=== PATIENT | female | born 1970 | race Caucasian/White ===

== ENCOUNTER 2017-06-15 16:20 | Emergency (ER) | payer MEDICAID ==
[~2017-06-15] VITALS: Ht 162.6 cm; Wt 76.8 kg
[2017-06-15] MEDS ORDERED: SODIUM CHLORIDE 0.9% 1,000ML IVBOLUS ONE (16:30)
[2017-06-15] MEDS ORDERED: SODIUM CHLORIDE FLUSH 10ML SYR IVF ONE (16:30)
[2017-06-15] MEDS ORDERED: ONDANSETRON 2MG/ML, 2ML IVPush ONE (16:30)
[2017-06-15 16:42] LABS: HEMATOCRIT 42.3 % (34.6-47.8); HEMOGLOBIN 14.1 g/dL (11.7-16.4); WHITE BLOOD COUNT 8.7 x10^3/uL (3.4-10)
[2017-06-15 16:55] LABS: ASPARTATE AMINO TRANSFERASE 19 U/L (15-37); BLOOD UREA NITROGEN 14 mg/dL (7-18)
[2017-06-15 18:00] VITALS: BP 112/72
== END 2017-06-15 18:02 | disposition home or self-care (01) ==
LOC: ED 17:33
DX: N30.00 Acute cystitis without hematuria (principal)
CPT/HCPCS: 36415; 80053; 81001; 85025; 87077; 87086; 99284; J7030; 87186

== ENCOUNTER 2018-09-09 11:46 | Emergency (ER) | payer MEDICAID ==
[~2018-09-09] VITALS: Ht 162.6 cm; Wt 74.0 kg
[2018-09-09 12:00] VITALS: BP 122/80
[2018-09-09] MEDS ORDERED: DIPHENHYDRAMINE 50 MG CAPSULE ONE (12:28)
[2018-09-09] MEDS ORDERED: FAMOTIDINE 20 MG TABLET ONE (12:29)
[2018-09-09] MEDS ORDERED: FAMOTIDINE 20 MG TABLET PO ONE (12:30)
[2018-09-09] MEDS ORDERED: DIPHENHYDRAMINE 25 MG CAPSULE PO ONE (12:30)
== END 2018-09-09 13:38 | disposition home or self-care (01) ==
LOC: ED 13:10
DX: L20.9 Atopic dermatitis, unspecified (principal)
CPT/HCPCS: 99284; J7512; Q0163

== ENCOUNTER 2018-12-02 23:33 | Inpatient (IN) | payer MEDICAID, OTHER ==
[~2018-12-02] VITALS: Ht 162.6 cm; Wt 65.6 kg
[2018-12-02 23:51] LABS: BASOPHILS # (AUTO) 0.07 x10^3/uL (0-0.1); BASOPHILS % (AUTO) 1 % (0-1); EOSINOPHILS # (AUTO) 0.11 x10^3/uL (0-0.4); EOSINOPHILS % (AUTO) 1 % (1-7); LYMPHOCYTES # (AUTO) 2.59 x10^3/uL (1-3.4); LYMPHOCYTES % (AUTO) 27 % (22-44); MD NO; MEAN CORPUSCULAR HEMOGLOBIN 29.4 pg (27.0-34.8); MEAN CORPUSCULAR HGB CONC 33.6 g/dL (32.4-35.8); MEAN CORPUSCULAR VOLUME 87.4 fL (80-100); MEAN PLATELET VOLUME 9.4 fL (7.4-10.4); MONOCYTES # (AUTO) 0.97 x10^3/uL (0.2-0.8); MONOCYTES % (AUTO) 10 % (2-9); NEUTROPHILS % (AUTO) 62 % (42-75); PLATELET COUNT 323 x10^3/uL (130-400); RED BLOOD COUNT 4.58 x10^6/uL (3.82-5.3); RED CELL DISTRIBUTION WIDTH 12.1 % (9.6-15.2)
--- NOTE | 2018-12-02 23:51 | NUR ---
PT EXPERIENCING LLQ ABD PAIN. PAIN 9/10 AND DESCRIBED SHARP. PT EXPERIENCING NVD PER TRIAGE NOTE
--- NOTE | 2018-12-02 23:52 | NUR ---
[facility]S GIVEN FENTANYL 200MCG WITH ZOFRAN IV
[2018-12-02] MEDS ORDERED: ONDANSETRON 2MG/ML, 2ML ONE (23:57)
[2018-12-02] MEDS ORDERED: MORPHINE SULFATE 4 MG/ML, 1ML ONE (23:58)
[2018-12-02] MEDS: MORPHINE SULFATE 4 MG/ML, 1ML IVPush PRN (23:59)
[2018-12-03] MEDS ORDERED: ONDANSETRON 2MG/ML, 2ML IVPush ONE
[2018-12-03 00:03] LABS: ALANINE AMINOTRANSFERASE 24 U/L (12-78); ALBUMIN 3.7 g/dL (3.4-5.0); ANION GAP 10 mmol/L (5-15); CALCIUM 8.6 mg/dL (8.5-10.1); CHLORIDE 108 mmol/L (98-107); CREATININE 0.75 mg/dL (0.55-1.02)
[2018-12-03 00:07] LABS: ALKALINE PHOSPHATASE 88 U/L (45-117); BILIRUBIN,TOTAL 0.3 mg/dL (0.2-1.0); TOTAL PROTEIN 6.8 g/dL (6.4-8.2)
[2018-12-03] MEDS ORDERED: MORPHINE SULFATE 4 MG/ML, 1ML ONE (00:08)
[2018-12-03] MEDS: MORPHINE SULFATE 4 MG/ML, 1ML IVPush PRN (00:10)
[2018-12-03] MEDS ORDERED: KETOROLAC 30 MG/1 ML ONE (00:24)
--- NOTE | 2018-12-03 00:28 | NUR ---
TORADOL GIVEN AFTER 2X MORPHINE IV PAIN MEDS PT IS IN CT NOW
[2018-12-03] MEDS ORDERED: KETOROLAC 30 MG/1 ML IVPush ONE (00:30)
[2018-12-03] MEDS ORDERED: OMNIPAQUE 350 MG/ML, 100ML BOTTLE ONE (00:30)
[2018-12-03 00:53] LABS: MICROSCOPIC NOT IND
[2018-12-03 00:57] LABS: CULTURE INDICATED? NO
[2018-12-03] MEDS ORDERED: HYDROmorphone 1 MG/ML, 1ML ONE (01:14)
[2018-12-03] MEDS ORDERED: SODIUM CHLORIDE 0.9% 1,000 ML IV ONE (01:24)
[2018-12-03] MEDS ORDERED: HYDROmorphone 2 MG/ML, 1ML IVPush PRN (01:30)
[2018-12-03] MEDS ORDERED: ONDANSETRON 2MG/ML, 2ML IVPush PRN (01:30)
[2018-12-03] MEDS ORDERED: HYDROmorphone 1 MG/ML, 1ML IVPush PRN (01:30)
--- NOTE | 2018-12-03 01:43 | NUR ---
ng was inserted after given iv dilaudid per pt's pain pt tolerated well during the ng insertion about 200mls of semifluids out as soon as ng insertion
--- NOTE | 2018-12-03 01:50 | NUR ---
given report after ng insertion
[2018-12-03] MEDS ORDERED: POLYETHYLENE GLYCOL 17 GM PACKET PO PRN (02:00)
[2018-12-03] MEDS ORDERED: PROMETHAZINE 25 MG/ML, 1ML IM PRN (02:00)
[2018-12-03] MEDS ORDERED: ONDANSETRON ODT 4 MG PO PRN (02:00)
[2018-12-03] MEDS ORDERED: DOCUSATE 100 MG CAPSULE PO PRN (02:00)
[2018-12-03] MEDS ORDERED: D5%-0.9% NACL 1,000 ML IV SCH (02:00)
[2018-12-03] MEDS ORDERED: OXYcodone IR 5MG TABLET PO PRN (02:00)
[2018-12-03] MEDS ORDERED: hydrALAzine 20 MG/ML, 1ML IVPush PRN (02:00)
[2018-12-03] MEDS ORDERED: BISACODYL 10 MG SUPP PR PRN (02:00)
[2018-12-03 02:15] VITALS: BP 131/68
[2018-12-03 02:30] LABS: FREE T4 (FREE THYROXINE) 1.18 ng/dL (0.76-1.46); THYROID STIMULATING HORMONE 1.71 mIU/L (0.358-3.740)
[2018-12-03] MEDS ORDERED: D5%-0.9% NACL+KCL 20MEQ 1,000 ML IV SCH (02:30)
[2018-12-03 02:43] LABS: HEMOGLOBIN A1C 5.4 % (4.2-6.3)
[2018-12-03] MEDS: morphine SULFATE 10 MG/ML, 1ML IVPush PRN ×7 (03:42→22:41)
[2018-12-03 07:29] VITALS: BP 112/76
[2018-12-03] MEDS ORDERED: MAGNESIUM SULFATE PMX 4GM/100M 100 ML IV ONE (07:30)
[2018-12-03] MEDS ORDERED: BISACODYL 10 MG SUPP PR SCH (09:00)
[2018-12-03] MEDS: NS + 40MEQ KCL 1,000 ML IV SCH ×2 (09:27→21:55)
[2018-12-03 12:57] VITALS: BP 108/75
[2018-12-03 19:56] VITALS: BP 107/75
[2018-12-04] VITALS (7 sets, daily range): BP systolic 97–118; BP diastolic 62–81
[2018-12-04] MEDS: ACETAMINOPHEN 650 MG SUPP PR PRN (01:16)
[2018-12-04] MEDS: morphine SULFATE 10 MG/ML, 1ML IVPush PRN ×7 (01:56→23:52)
[2018-12-04 05:25] LABS: INTERNATIONAL NORMALIZED RATIO 1.08 (0.93-1.1); PROTHROMBIN TIME 11.4 Seconds (9.6-11.5)
[2018-12-04 05:30] LABS: CHLORIDE 110 mmol/L (98-107)
[2018-12-04 05:33] LABS: BASOPHILS # (AUTO) 0.04 x10^3/uL (0-0.1); BASOPHILS % (AUTO) 1 % (0-1); EOSINOPHILS # (AUTO) 0.14 x10^3/uL (0-0.4); EOSINOPHILS % (AUTO) 2 % (1-7); LYMPHOCYTES # (AUTO) 1.13 x10^3/uL (1-3.4); LYMPHOCYTES % (AUTO) 17 % (22-44); MD NO; MEAN CORPUSCULAR HEMOGLOBIN 29.8 pg (27.0-34.8); MEAN CORPUSCULAR VOLUME 87.7 fL (80-100); MEAN PLATELET VOLUME 9.5 fL (7.4-10.4); MONOCYTES # (AUTO) 0.69 x10^3/uL (0.2-0.8); MONOCYTES % (AUTO) 10 % (2-9); NEUTROPHILS # (AUTO) 4.84 x10^3/uL (1.8-6.8); NEUTROPHILS % (AUTO) 71 % (42-75); PLATELET COUNT 271 x10^3/uL (130-400); RED BLOOD COUNT 4.03 x10^6/uL (3.82-5.3); RED CELL DISTRIBUTION WIDTH 12.3 % (9.6-15.2)
[2018-12-04 05:40] LABS: ALANINE AMINOTRANSFERASE 30 U/L (12-78); ALBUMIN 3.1 g/dL (3.4-5.0); ALKALINE PHOSPHATASE 99 U/L (45-117); ANION GAP 5 mmol/L (5-15); BILIRUBIN,TOTAL 0.6 mg/dL (0.2-1.0); CHOL/HDL RATIO 2.6; CHOLESTEROL, TOTAL 108 mg/dL (140-239); CREATININE 0.44 mg/dL (0.55-1.02); HDL CHOL % 39 % (28-40); HDL CHOLESTEROL (DIRECT) 42 mg/dL (40-60); LDL CHOLESTEROL,CALCULATED 45 mg/dL (54-169); LDL/HDL RATIO 1.1 (0.5-3.0); TOTAL PROTEIN 5.9 g/dL (6.4-8.2); TRIGLYCERIDES 104 mg/dL (50-200); VLDL CHOLESTEROL 21 mg/dL (0-25)
[2018-12-04] MEDS: ENOXAPARIN 40 MG/0.4 ML SQ SCH (07:30)
[2018-12-04] MEDS ORDERED: BISACODYL 10 MG SUPP PR PRN (07:30)
[2018-12-04] MEDS ORDERED: NS + 40MEQ KCL 1,000 ML IV SCH (07:30)
[2018-12-04] MEDS ORDERED: FENTANYL PF 250 MCG/5ML ONE (14:43)
[2018-12-04] MEDS ORDERED: MIDAZOLAM 1 MG/ML, 2ML ONE (14:43)
[2018-12-04] MEDS ORDERED: DEXAMETHASONE 4 MG/ML, 1ML ONE ×2 (14:52)
[2018-12-04] MEDS ORDERED: SUCCINYLCHOLINE 20 MG/ML, 10ML ONE (14:52)
[2018-12-04] MEDS ORDERED: PROPOFOL 10 MG/ML, 20ML ONE (14:52)
[2018-12-04] MEDS ORDERED: ONDANSETRON 2MG/ML, 2ML ONE (14:52)
[2018-12-04] MEDS ORDERED: hydrALAzine 20 MG/ML, 1ML IV PRN (15:30)
[2018-12-04] MEDS ORDERED: LABETALOL 5MG/ML, 20ML IV PRN (15:30)
[2018-12-04] MEDS ORDERED: ONDANSETRON ODT 8 MG PO PRN (15:30)
[2018-12-04] MEDS ORDERED: PROMETHAZINE 25 MG SUPP PR PRN (15:30)
[2018-12-04] MEDS ORDERED: PROMETHAZINE 25 MG/ML, 1ML IV PRN (15:30)
[2018-12-04] MEDS ORDERED: ONDANSETRON 2MG/ML, 2ML IV PRN (15:30)
[2018-12-04] MEDS ORDERED: MORPHINE SULFATE 4 MG/ML, 1ML IVPush PRN (15:30)
[2018-12-04] MEDS ORDERED: MEPERIDINE/PF 25MG/0.5ML IVPush PRN (15:30)
[2018-12-04] MEDS ORDERED: PROMETHAZINE 25 MG/ML, 1ML IM PRN ×2 (15:30)
[2018-12-04] MEDS ORDERED: HYDROmorphone 2 MG/ML, 1ML IVPush PRN (15:30)
[2018-12-04] MEDS ORDERED: PROMETHAZINE 12.5 MG SUPP PR PRN (15:30)
[2018-12-04] MEDS ORDERED: FENTANYL PF 100 MCG/2ML ONE (15:51)
[2018-12-04] MEDS: FENTANYL PF 100 MCG/2ML IV PRN ×2 (15:53→16:02)
[2018-12-05 01:47] VITALS: BP 97/64
[2018-12-05 02:19] VITALS: BP 97/64
[2018-12-05] MEDS: ACETAMINOPHEN 650 MG SUPP PR PRN (02:24)
[2018-12-05] MEDS: morphine SULFATE 10 MG/ML, 1ML IVPush PRN ×6 (03:45→21:32)
[2018-12-05 04:56] LABS: ANION GAP 10 mmol/L (5-15); CALCIUM 8.1 mg/dL (8.5-10.1); CHLORIDE 111 mmol/L (98-107); CREATININE 0.48 mg/dL (0.55-1.02)
[2018-12-05 07:19] VITALS: BP 93/60
[2018-12-05] MEDS: ENOXAPARIN 40 MG/0.4 ML SQ SCH ×2 (07:30→19:27)
[2018-12-05] MEDS: SODIUM CHLORIDE 0.9% 1,000 ML IV SCH ×2 (07:37→21:32)
[2018-12-05 11:00] VITALS: BP 97/59
[2018-12-05 12:05] VITALS: BP 94/61
[2018-12-05 18:46] LABS: ANA SCREEN NEGATIVE (Negative)
[2018-12-05 20:27] VITALS: BP 90/60
[2018-12-06] MEDS: morphine SULFATE 10 MG/ML, 1ML IVPush PRN ×4 (00:29→12:18)
[2018-12-06 02:39] VITALS: BP 132/77
[2018-12-06 05:03] LABS: ANION GAP 6 mmol/L (5-15); CALCIUM 8.2 mg/dL (8.5-10.1); CHLORIDE 110 mmol/L (98-107); CREATININE 0.46 mg/dL (0.55-1.02)
[2018-12-06] MEDS ORDERED: LORazepam 2 MG/ML, 1ML IVPush ONE (07:00)
[2018-12-06 07:29] VITALS: BP 120/80
[2018-12-06] MEDS ORDERED: FENTANYL PF 250 MCG/5ML ONE (11:57)
[2018-12-06] MEDS ORDERED: MIDAZOLAM 1 MG/ML, 2ML ONE (11:57)
[2018-12-06] MEDS: SODIUM CHLORIDE 0.9% 1,000 ML IV SCH (12:18)
[2018-12-06] MEDS ORDERED: LIDOCAINE/MPF 2%-EPI 1:200K, 20 ML ONE (14:22)
[2018-12-06] MEDS ORDERED: SUGAMMADEX 200 MG/2 ML IVPush ONE (16:01)
[2018-12-06] MEDS ORDERED: HYDROmorphone 5 MG, BUPIVACAINE/PF 0.5%, 30ML 62.5 ML in SODIUM CHLORIDE 0.9% 182.5 ML EPIDCONT SCH (17:00)
[2018-12-06] MEDS ORDERED: FENTANYL PF 100 MCG/2ML ONE (17:23)
[2018-12-06] MEDS ORDERED: FENTANYL PF 100 MCG/2ML IV PRN (18:00)
[2018-12-06] MEDS ORDERED: NALOXONE 0.4 MG/ML, 1ML IV PRN (18:00)
[2018-12-06] MEDS ORDERED: DO NOT GIVE XX SCH (18:00)
[2018-12-06] MEDS ORDERED: EPHEDRINE 50 MG/ML, 1ML IVPush PRN (18:00)
[2018-12-06] MEDS ORDERED: DIAZEPAM 5 MG/ML, 2ML IVPush PRN (19:00)
[2018-12-06 19:52] VITALS: BP 111/76
[2018-12-06] MEDS ORDERED: NALBUPHINE 10 MG/ML, 1ML IV PRN (20:30)
[2018-12-06] MEDS ORDERED: LACTATED RINGERS 500 ML IVBOLUS PRN (21:00)
[2018-12-06] MEDS: POTASSIUM CHLORIDE 20 MEQ in LACTATED RINGERS 1,000 ML IV SCH (22:19)
[2018-12-07 01:25] VITALS: BP 122/71
[2018-12-07] MEDS: LORazepam 2 MG/ML, 1ML IV PRN (06:13)
[2018-12-07] MEDS: POTASSIUM CHLORIDE 20 MEQ in LACTATED RINGERS 1,000 ML IV SCH (06:45)
[2018-12-07] MEDS ORDERED: GLUCAGON 1 MG IM PRN (07:30)
[2018-12-07] MEDS ORDERED: DEXTROSE 4 GM TAB.CHEW PO PRN (07:30)
[2018-12-07] MEDS ORDERED: DEXTROSE 50%, 50ML SYRINGE IVPush PRN (07:30)
[2018-12-07 07:47] LABS: BASOPHILS # (AUTO) 0.02 x10^3/uL (0-0.1); BASOPHILS % (AUTO) 0 % (0-1); EOSINOPHILS # (AUTO) 0.08 x10^3/uL (0-0.4); EOSINOPHILS % (AUTO) 1 % (1-7); HEMOGRAM NOTE RECHECKED; LYMPHOCYTES # (AUTO) 0.88 x10^3/uL (1-3.4); LYMPHOCYTES % (AUTO) 8 % (22-44); MD NO; MEAN CORPUSCULAR HEMOGLOBIN 29.3 pg (27.0-34.8); MEAN CORPUSCULAR HGB CONC 33.7 g/dL (32.4-35.8); MEAN PLATELET VOLUME 8.9 fL (7.4-10.4); MONOCYTES # (AUTO) 1.22 x10^3/uL (0.2-0.8); MONOCYTES % (AUTO) 12 % (2-9); NEUTROPHILS # (AUTO) 8.41 x10^3/uL (1.8-6.8); NEUTROPHILS % (AUTO) 79 % (42-75); PLATELET COUNT 291 x10^3/uL (130-400); RED BLOOD COUNT 4.31 x10^6/uL (3.82-5.3)
[2018-12-07 07:49] LABS: ALANINE AMINOTRANSFERASE 24 U/L (12-78); ALBUMIN 2.6 g/dL (3.4-5.0); ANION GAP 10 mmol/L (5-15); CALCIUM 7.8 mg/dL (8.5-10.1); CHLORIDE 107 mmol/L (98-107); CREATININE 0.51 mg/dL (0.55-1.02)
[2018-12-07 07:51] LABS: ALKALINE PHOSPHATASE 80 U/L (45-117); BILIRUBIN,TOTAL 0.5 mg/dL (0.2-1.0); TOTAL PROTEIN 5.6 g/dL (6.4-8.2)
[2018-12-07 09:04] VITALS: BP 113/80
[2018-12-07] MEDS: SODIUM CHLORIDE FLUSH 10ML SYR IVF SCH ×2 (09:22→20:25)
[2018-12-07] MEDS: DEXTROSE 5% 1,000 ML IV SCH ×2 (09:22→17:30)
[2018-12-07] MEDS: FENTANYL PF 100 MCG/2ML EPIDPUSH PRN ×5 (10:37→22:23)
[2018-12-07 12:50] VITALS: BP 112/70
[2018-12-07] MEDS ORDERED: D5%-0.45NACL+KCL 20MEQ 1,000 ML IV SCH (14:30)
[2018-12-07] MEDS ORDERED: CEFOTETAN 2 GM ONE (14:57)
[2018-12-07] MEDS ORDERED: EPHEDRINE 50 MG/ML, 1ML ONE (14:57)
[2018-12-07] MEDS ORDERED: ROCURONIUM 10 MG/ML,10ML ONE (14:57)
[2018-12-07] MEDS ORDERED: morphine SULFATE/PF 1 MG/ML, 10ML EPIDPUSH PRN ×2 (15:00→16:40)
[2018-12-07] MEDS: HYDROmorphone 5 MG, BUPIVACAINE/PF 0.5%, 30ML 62.5 ML in SODIUM CHLORIDE 0.9% 182.5 ML EPIDCONT SCH (18:13)
[2018-12-07 20:00] VITALS: BP 112/70
[2018-12-08] VITALS (7 sets, daily range): BP systolic 72–101; BP diastolic 36–70
[2018-12-08] MEDS: FENTANYL PF 100 MCG/2ML EPIDPUSH PRN ×4 (00:52→12:13)
[2018-12-08] MEDS: OXYcodone/APAP 5/325MG TABLET PO PRN ×4 (08:26→23:56)
[2018-12-08] MEDS: SODIUM CHLORIDE FLUSH 3ML SYRINGE IVF SCH ×2 (08:26→21:00)
[2018-12-08] MEDS: SODIUM CHLORIDE FLUSH 10ML SYR IVF SCH ×2 (08:26→19:59)
[2018-12-08] MEDS: POLYETHYLENE GLYCOL 17 GM PACKET PO SCH (08:26)
[2018-12-08] MEDS: KETOROLAC 10MG TABLET PO PRN ×2 (10:31→21:32)
[2018-12-08] MEDS ORDERED: morphine SULFATE/PF 1 MG/ML, 10ML EPIDPUSH PRN (12:30)
[2018-12-08] MEDS ORDERED: D5%-0.45NACL+KCL 20MEQ 1,000 ML IV SCH (14:30)
[2018-12-08] MEDS ORDERED: DIPHENHYDRAMINE 50 MG/ML, 1ML IVPush PRN (16:30)
[2018-12-08] MEDS: HYDROmorphone 5 MG, BUPIVACAINE/PF 0.5%, 30ML 62.5 ML in SODIUM CHLORIDE 0.9% 182.5 ML EPIDCONT SCH (18:40)
[2018-12-08] MEDS ORDERED: OMNIPAQUE 350 MG/ML, 75ML BOTTLE ONE (18:50)
[2018-12-09 03:20] VITALS: BP 99/66
[2018-12-09] MEDS: OXYcodone/APAP 5/325MG TABLET PO PRN ×5 (03:32→20:23)
[2018-12-09 05:04] LABS: BASOPHILS # (AUTO) 0.04 x10^3/uL (0-0.1); BASOPHILS % (AUTO) 1 % (0-1); EOSINOPHILS # (AUTO) 0.28 x10^3/uL (0-0.4); EOSINOPHILS % (AUTO) 3 % (1-7); LYMPHOCYTES # (AUTO) 1.11 x10^3/uL (1-3.4); LYMPHOCYTES % (AUTO) 14 % (22-44); MD NO; MEAN CORPUSCULAR HEMOGLOBIN 29.3 pg (27.0-34.8); MEAN CORPUSCULAR VOLUME 88.6 fL (80-100); MONOCYTES # (AUTO) 0.92 x10^3/uL (0.2-0.8); MONOCYTES % (AUTO) 11 % (2-9); NEUTROPHILS % (AUTO) 71 % (42-75); PLATELET COUNT 281 x10^3/uL (130-400); RED BLOOD COUNT 4.03 x10^6/uL (3.82-5.3); RED CELL DISTRIBUTION WIDTH 12.5 % (9.6-15.2)
[2018-12-09 08:00] VITALS: BP 99/66
[2018-12-09] MEDS: POLYETHYLENE GLYCOL 17 GM PACKET PO SCH (08:56)
[2018-12-09] MEDS: SODIUM CHLORIDE FLUSH 3ML SYRINGE IVF SCH ×2 (09:00→20:25)
[2018-12-09] MEDS: SODIUM CHLORIDE FLUSH 10ML SYR IVF SCH ×2 (09:09→20:24)
[2018-12-09] MEDS: ONDANSETRON 2MG/ML, 2ML IVPush PRN ×2 (09:19→15:07)
[2018-12-09 14:00] VITALS: BP 103/64
[2018-12-09] MEDS: LORazepam 2 MG/ML, 1ML IV PRN (15:07)
[2018-12-09 20:14] VITALS: BP_SYST 97; BP_SYST 98; BP_DIAS 65; BP_DIAS 66
[2018-12-09 20:19] VITALS: BP 109/76
[2018-12-10 00:34] VITALS: BP 100/70
[2018-12-10] MEDS: OXYcodone/APAP 5/325MG TABLET PO PRN ×4 (00:36→13:45)
[2018-12-10 06:31] VITALS: BP 94/63
[2018-12-10] MEDS: SODIUM CHLORIDE FLUSH 3ML SYRINGE IVF SCH (09:00)
[2018-12-10] MEDS: POLYETHYLENE GLYCOL 17 GM PACKET PO SCH (09:31)
[2018-12-10] MEDS: SODIUM CHLORIDE FLUSH 10ML SYR IVF SCH (09:33)
[2018-12-10] MEDS ORDERED: OXYC-302 PO (10:43)
[2018-12-10] MEDS ORDERED: ONDA4TAB13 PO (10:43)
[2018-12-10] MEDS: KETOROLAC 10MG TABLET PO PRN (11:22)
[2018-12-10 13:35] VITALS: BP 107/75
== END 2018-12-10 15:30 | disposition home or self-care (01) | DRG 326 ==
LOC: ED 23:55 → EDIP 12-03 01:26 → 3NE 12-03 02:05 → 3NW 12-06 17:36
PROVIDERS: ADMIT Internal Medicine; ATTEND Internal Medicine
PROC: 0D9680Z Drainage of Stomach with Drainage Device, Via Natural or Artificial Opening Endoscopic (ICD-10-PCS; 2018-12-04)
PROC: 0DB98ZX Excision of Duodenum, Via Natural or Artificial Opening Endoscopic, Diagnostic (ICD-10-PCS; principal; 2018-12-04 15:00)
PROC: 0D160ZA Bypass Stomach to Jejunum, Open Approach (ICD-10-PCS; 2018-12-06)
PROC: 0DBW0ZZ Excision of Peritoneum, Open Approach (ICD-10-PCS; 2018-12-06)
PROC: 0WQF0ZZ Repair Abdominal Wall, Open Approach (ICD-10-PCS; 2018-12-06)
PROC: 0UT70ZZ Resection of Bilateral Fallopian Tubes, Open Approach (ICD-10-PCS; 2018-12-06)
PROC: 0UT20ZZ Resection of Bilateral Ovaries, Open Approach (ICD-10-PCS; 2018-12-06)
DX: K31.1 Adult hypertrophic pyloric stenosis (principal); K85.00 Idiopathic acute pancreatitis without necrosis or infection; K43.0 Incisional hernia with obstruction, without gangrene; C25.9 Malignant neoplasm of pancreas, unspecified; K31.5 Obstruction of duodenum; E16.2 Hypoglycemia, unspecified; E83.42 Hypomagnesemia; E87.6 Hypokalemia; G47.00 Insomnia, unspecified; K21.9 Gastro-esophageal reflux disease without esophagitis; K29.80 Duodenitis without bleeding; N83.292 Other ovarian cyst, left side; Z80.0 Family history of malignant neoplasm of digestive organs; Z90.49 Acquired absence of other specified parts of digestive tract; Z80.1 Family history of malignant neoplasm of trachea, bronchus and lung; Z87.442 Personal history of urinary calculi
CPT/HCPCS: 36415; 74018; 99285; J3490; 71260; 74177; 76856; 80048; 80053; 80061; 81003; 82787; 83036; 83690; 83735; 84100; 84439; 84443; 84703; 85025; 85610; 86038; 86301; 86304; 88172; 88173; 88305; 88341; 88342; 96374; 96375; G0378; J1100; J1170; J1885; J2250; J2405; J2704; J3010; J3360; J3480; J7070; Q0162; Q9967; C1725; J0330; J1200; J2060; J2270; J3475; J7030; J7050; J7120

== ENCOUNTER 2019-01-10 16:22 | Inpatient (IN) | payer OTHER ==
[~2019-01-10] VITALS: Ht 162.6 cm; Wt 57.2 kg
[~2019-01-10 16:22] MED LIST changes: -MORPHINE PO; -OMNIPAQUE 350 MG/ML, 100ML BOTTLE ONE; -OXYC10TA6 PO
[2019-01-10] MEDS ORDERED: SODIUM CHLORIDE 0.9% 1,000ML IVBOLUS ONE (17:00)
[2019-01-10] MEDS ORDERED: ONDANSETRON 2MG/ML, 2ML IVPush ONE (17:00)
[2019-01-10 17:11] LABS: BASOPHILS # (AUTO) 0.03 x10^3/uL (0-0.1); BASOPHILS % (AUTO) 0 % (0-1); EOSINOPHILS # (AUTO) 0.57 x10^3/uL (0-0.4); EOSINOPHILS % (AUTO) 8 % (1-7); LYMPHOCYTES # (AUTO) 1.19 x10^3/uL (1-3.4); LYMPHOCYTES % (AUTO) 17 % (22-44); MD NO; MEAN CORPUSCULAR HEMOGLOBIN 28.2 pg (27.0-34.8); MEAN CORPUSCULAR VOLUME 85.6 fL (80-100); MEAN PLATELET VOLUME 9.5 fL (7.4-10.4); MONOCYTES # (AUTO) 0.76 x10^3/uL (0.2-0.8); MONOCYTES % (AUTO) 11 % (2-9); NEUTROPHILS # (AUTO) 4.67 x10^3/uL (1.8-6.8); NEUTROPHILS % (AUTO) 65 % (42-75); PLATELET COUNT 285 x10^3/uL (130-400); RED CELL DISTRIBUTION WIDTH 13.6 % (9.6-15.2)
[2019-01-10] MEDS ORDERED: ONDANSETRON 2MG/ML, 2ML ONE (17:12)
[2019-01-10] MEDS ORDERED: HYDROmorphone 1 MG/ML, 1ML ONE ×2 (17:13→18:14)
[2019-01-10] MEDS: HYDROmorphone 2 MG/ML, 1ML IVPush PRN ×2 (17:15→18:17)
[2019-01-10 17:18] LABS: ALANINE AMINOTRANSFERASE 319 U/L (12-78); ALBUMIN 2.8 g/dL (3.4-5.0); ANION GAP 6 mmol/L (5-15); CALCIUM 8.2 mg/dL (8.5-10.1); CHLORIDE 106 mmol/L (98-107)
[2019-01-10 17:21] LABS: ALKALINE PHOSPHATASE 566 U/L (45-117); BILIRUBIN,TOTAL 1.4 mg/dL (0.2-1.0); CREATININE 0.62 mg/dL (0.55-1.02); TOTAL PROTEIN 6.3 g/dL (6.4-8.2)
--- NOTE | 2019-01-10 17:45 | NUR ---
PT MEDICATED FOR PAIN, PIV PLACED.
--- NOTE | 2019-01-10 18:00 | NUR ---
PT ARRIVES TO ED WITH EPIGASTRIC ABD PAIN. PT DIAGNOSED WITH STAGE 4 PANCREATIC CANCER AND IS GOING TO START CHEMOTHERAPY AND RADIATION. PT WAS SENT OVER BY PCP FOR PANCREATIC STENT AFTER US WAS COMPLETED AT [facility] OFFICE. PT CONNECTED TO ALL MONITORS AND CALL LIGHT IN REACH. AWAITING FURTHER ORDERS.
--- NOTE | 2019-01-10 18:17 | NUR ---
PT MEDICATED FOR PAIN.
--- NOTE | 2019-01-10 18:20 | NUR ---
RECEIVED REPORT FROM JAKE LUNA. PT RESTING ON DUNIA. NADN. ARREOLAS.
[2019-01-10] MEDS ORDERED: MORPHINE PO (18:30)
[2019-01-10] MEDS ORDERED: OXYC10TA6 PO (18:30)
[2019-01-10] MEDS ORDERED: MAGNESIUM SULFATE PMX 2GM/50ML 50 ML IV ONE (18:30)
--- NOTE | 2019-01-10 18:42 | NUR ---
REPORT GIVEN TO HAYDER NELSON RN. ALL QUESTIONS ANSWERED. AWAITING PT TRANSPORT.
[2019-01-10] MEDS ORDERED: POTASSIUM CHLORIDE 20 MEQ TAB.ER.PRT ONE (18:51)
--- NOTE | 2019-01-10 18:51 | NUR ---
REPORT BRECEIVED FROM JAKE GARCIA
--- NOTE | 2019-01-10 18:55 | NUR ---
YELLOW SLIP SENT TO RX FOR MG+ AND K+.
[2019-01-10] MEDS ORDERED: POTASSIUM CHLORIDE 40 MEQ in SODIUM CHLORIDE 0.9% 500 ML IV ONE (19:00)
[2019-01-10] MEDS ORDERED: POTASSIUM CHLORIDE 20 MEQ TAB.ER.PRT PO ONE (19:00)
[2019-01-10] MEDS ORDERED: LIDODERM 5% PATCH TD PRN (19:30)
[2019-01-10] MEDS ORDERED: ONDANSETRON 2MG/ML, 2ML IVPush PRN (19:30)
[2019-01-10 20:00] VITALS: BP 115/76
[2019-01-10] MEDS: LORazepam 2 MG/ML, 1ML IVPush PRN (20:24)
[2019-01-10] MEDS: OXYcodone IR 5MG TABLET PO PRN (21:40)
[2019-01-10] MEDS: FAMOTIDINE 20 MG/2 ML IVPush SCH (22:21)
[2019-01-10] MEDS: morphine SULFATE 15 MG TAB.IR PO PRN (23:15)
[2019-01-11] MEDS ORDERED: DEXTROSE 4 GM TAB.CHEW PO PRN (01:00)
[2019-01-11] MEDS ORDERED: DEXTROSE 50%, 50ML SYRINGE IVPush PRN (01:00)
[2019-01-11] MEDS ORDERED: GLUCAGON 1 MG IM PRN (01:00)
[2019-01-11 01:15] VITALS: BP 115/74
[2019-01-11] MEDS: D5%-0.45NACL+KCL 20MEQ 1,000 ML IV SCH ×2 (02:39→15:47)
[2019-01-11 06:23] LABS: BASOPHILS # (AUTO) 0.03 x10^3/uL (0-0.1); BASOPHILS % (AUTO) 1 % (0-1); CHLORIDE 109 mmol/L (98-107); EOSINOPHILS # (AUTO) 0.65 x10^3/uL (0-0.4); EOSINOPHILS % (AUTO) 12 % (1-7); LYMPHOCYTES # (AUTO) 1.21 x10^3/uL (1-3.4); LYMPHOCYTES % (AUTO) 22 % (22-44); MD NO; MEAN CORPUSCULAR HEMOGLOBIN 28.6 pg (27.0-34.8); MEAN CORPUSCULAR HGB CONC 33.3 g/dL (32.4-35.8); MEAN CORPUSCULAR VOLUME 85.9 fL (80-100); MEAN PLATELET VOLUME 9.8 fL (7.4-10.4); MONOCYTES # (AUTO) 0.72 x10^3/uL (0.2-0.8); MONOCYTES % (AUTO) 13 % (2-9); NEUTROPHILS # (AUTO) 2.82 x10^3/uL (1.8-6.8); NEUTROPHILS % (AUTO) 52 % (42-75); PLATELET COUNT 253 x10^3/uL (130-400); RED CELL DISTRIBUTION WIDTH 13.9 % (9.6-15.2)
[2019-01-11 06:30] LABS: ALANINE AMINOTRANSFERASE 239 U/L (12-78); ALBUMIN 2.2 g/dL (3.4-5.0); ALKALINE PHOSPHATASE 496 U/L (45-117); ANION GAP 6 mmol/L (5-15); BILIRUBIN,TOTAL 1.8 mg/dL (0.2-1.0); CALCIUM 7.6 mg/dL (8.5-10.1); CREATININE 0.36 mg/dL (0.55-1.02); TOTAL PROTEIN 5.2 g/dL (6.4-8.2)
[2019-01-11] MEDS: INSULIN LISPRO 100 UNITS/ML, PEN SQ-INSULIN SCH ×4 (07:00→20:08)
[2019-01-11 07:14] VITALS: BP 112/75
[2019-01-11] MEDS: HYDROmorphone 2 MG/ML, 1ML IVPush PRN ×3 (10:05→20:07)
[2019-01-11] MEDS: SODIUM CHLORIDE FLUSH 10ML SYR IVF SCH ×2 (10:10→20:08)
[2019-01-11] MEDS: FAMOTIDINE 20 MG/2 ML IVPush SCH ×2 (10:10→20:07)
[2019-01-11 14:40] VITALS: BP 117/73
[2019-01-11] MEDS: LORazepam 2 MG/ML, 1ML IVPush PRN ×2 (15:46→22:25)
[2019-01-11] MEDS: morphine SULFATE 15 MG TAB.IR PO PRN (18:26)
[2019-01-11 19:18] VITALS: BP 114/76
[2019-01-12] MEDS: D5%-0.45NACL+KCL 20MEQ 1,000 ML IV SCH ×2 (01:33→14:33)
[2019-01-12 03:20] VITALS: BP 112/76
[2019-01-12] MEDS: HYDROmorphone 2 MG/ML, 1ML IVPush PRN (03:30)
[2019-01-12] MEDS: LORazepam 2 MG/ML, 1ML IVPush PRN ×2 (04:57→21:22)
[2019-01-12] MEDS: INSULIN LISPRO 100 UNITS/ML, PEN SQ-INSULIN SCH ×4 (07:00→20:30)
[2019-01-12 07:09] VITALS: BP 113/76
[2019-01-12] MEDS: SODIUM CHLORIDE FLUSH 10ML SYR IVF SCH ×2 (09:00→20:16)
[2019-01-12] MEDS ORDERED: DEXAMETHASONE 4 MG/ML, 1ML ONE (09:11)
[2019-01-12] MEDS ORDERED: CEFAZOLIN 1,000 MG ONE (09:11)
[2019-01-12] MEDS ORDERED: PROPOFOL 10 MG/ML, 20ML ONE (09:11)
[2019-01-12] MEDS ORDERED: ONDANSETRON 2MG/ML, 2ML ONE (09:11)
[2019-01-12] MEDS ORDERED: MIDAZOLAM 1 MG/ML, 2ML ONE (09:14)
[2019-01-12] MEDS ORDERED: FENTANYL PF 100 MCG/2ML ONE (09:14)
[2019-01-12] MEDS ORDERED: HYDROmorphone 2 MG/ML, 1ML IVPush PRN (09:30)
[2019-01-12] MEDS ORDERED: MEPERIDINE/PF 25MG/0.5ML IVPush PRN (09:30)
[2019-01-12] MEDS ORDERED: PROMETHAZINE 25 MG/ML, 1ML IV PRN (09:30)
[2019-01-12] MEDS ORDERED: FENTANYL PF 100 MCG/2ML IV PRN (09:30)
[2019-01-12] MEDS ORDERED: HALOPERIDOL 5 MG/ML IV PRN (09:30)
[2019-01-12] MEDS ORDERED: OXYcodone 5 MG/5 ML ORAL.SOL UDC PO PRN (09:30)
[2019-01-12] MEDS ORDERED: BUPIVACAINE/PF 0.25% ONE (09:51)
[2019-01-12] MEDS ORDERED: ETHYL ALCOHOL 98%, 5 ML ONE (09:51)
[2019-01-12 11:22] LABS: CHLORIDE 110 mmol/L (98-107)
[2019-01-12] MEDS: FAMOTIDINE 20 MG/2 ML IVPush SCH ×2 (11:24→20:17)
[2019-01-12 11:34] LABS: MEAN CORPUSCULAR HEMOGLOBIN 28.5 pg (27.0-34.8); MEAN CORPUSCULAR HGB CONC 33.2 g/dL (32.4-35.8); MEAN CORPUSCULAR VOLUME 85.8 fL (80-100); PLATELET COUNT 283 x10^3/uL (130-400); RED BLOOD COUNT 4.35 x10^6/uL (3.82-5.3); RED CELL DISTRIBUTION WIDTH 13.6 % (9.6-15.2)
[2019-01-12 12:12] LABS: ALBUMIN 2.5 g/dL (3.4-5.0); ALKALINE PHOSPHATASE 508 U/L (45-117); ANION GAP 8 mmol/L (5-15); BILIRUBIN,TOTAL 1.2 mg/dL (0.2-1.0); TOTAL PROTEIN 5.7 g/dL (6.4-8.2)
[2019-01-12 12:15] LABS: ALANINE AMINOTRANSFERASE 185 U/L (12-78); CREATININE 0.46 mg/dL (0.55-1.02)
[2019-01-12 12:40] LABS: BASOPHILS % (AUTO) 0 % (0-1); EOSINOPHILS # (AUTO) 0.31 x10^3/uL (0-0.4); EOSINOPHILS % (AUTO) 4 % (1-7); LYMPHOCYTES # (AUTO) 0.53 x10^3/uL (1-3.4); LYMPHOCYTES % (AUTO) 6 % (22-44); MD SCAN; MONOCYTES # (AUTO) 0.39 x10^3/uL (0.2-0.8); MONOCYTES % (AUTO) 5 % (2-9); NEUTROPHILS % (AUTO) 86 % (42-75)
[2019-01-12 13:51] VITALS: BP 117/79
[2019-01-12] MEDS: OXYcodone IR 5MG TABLET PO PRN ×2 (15:35→20:17)
[2019-01-12 19:58] VITALS: BP 119/78
[2019-01-13 00:05] VITALS: BP 110/69
[2019-01-13] MEDS: D5%-0.45NACL+KCL 20MEQ 1,000 ML IV SCH ×2 (00:42→13:15)
[2019-01-13] MEDS ORDERED: FENTANYL PF 100 MCG/2ML ONE (06:59)
[2019-01-13] MEDS ORDERED: MIDAZOLAM 1 MG/ML, 2ML ONE (07:00)
[2019-01-13] MEDS: INSULIN LISPRO 100 UNITS/ML, PEN SQ-INSULIN SCH ×4 (07:00→19:35)
[2019-01-13] MEDS ORDERED: MORPHINE SULFATE 4 MG/ML, 1ML IVPush PRN (07:30)
[2019-01-13] MEDS ORDERED: OXYcodone 5 MG/5 ML ORAL.SOL UDC PO PRN (07:30)
[2019-01-13] MEDS ORDERED: FENTANYL PF 100 MCG/2ML IV PRN (07:30)
[2019-01-13] MEDS ORDERED: HYDROmorphone 2 MG/ML, 1ML IVPush PRN (07:30)
[2019-01-13] MEDS ORDERED: LORazepam 2 MG/ML, 1ML IVPush PRN (07:30)
[2019-01-13] MEDS ORDERED: METOCLOPRAMIDE 5 MG/ML, 2ML IV PRN (07:30)
[2019-01-13] MEDS ORDERED: MEPERIDINE/PF 25MG/0.5ML IVPush PRN (07:30)
[2019-01-13] MEDS ORDERED: ONDANSETRON 2MG/ML, 2ML ONE (07:33)
[2019-01-13] MEDS ORDERED: LIDOCAINE 2% 100MG/5ML SYRINGE ONE (07:33)
[2019-01-13] MEDS ORDERED: SUCCINYLCHOLINE 20 MG/ML, 10ML ONE (07:33)
[2019-01-13] MEDS ORDERED: PROPOFOL 10 MG/ML, 20ML ONE (07:33)
[2019-01-13 09:23] VITALS: BP 113/74
[2019-01-13] MEDS: SODIUM CHLORIDE FLUSH 10ML SYR IVF SCH ×2 (10:19→19:30)
[2019-01-13] MEDS: HYDROmorphone 2 MG/ML, 1ML IVPush PRN ×6 (10:19→21:31)
[2019-01-13] MEDS: FAMOTIDINE 20 MG/2 ML IVPush SCH ×2 (10:19→19:30)
[2019-01-13] MEDS: OXYcodone IR 5MG TABLET PO PRN ×3 (10:58→21:31)
[2019-01-13 11:15] LABS: ALANINE AMINOTRANSFERASE 130 U/L (12-78); ALBUMIN 2.3 g/dL (3.4-5.0); ANION GAP 4 mmol/L (5-15); CALCIUM 7.9 mg/dL (8.5-10.1); CHLORIDE 113 mmol/L (98-107)
[2019-01-13 11:18] LABS: ALKALINE PHOSPHATASE 436 U/L (45-117); BILIRUBIN,TOTAL 0.6 mg/dL (0.2-1.0); CREATININE 0.49 mg/dL (0.55-1.02); TOTAL PROTEIN 5.6 g/dL (6.4-8.2)
[2019-01-13 14:05] VITALS: BP 118/76
[2019-01-13] MEDS: LORazepam 2 MG/ML, 1ML IVPush PRN ×2 (16:10→20:37)
[2019-01-13] MEDS: morphine SULFATE 15 MG TAB.IR PO PRN (19:30)
[2019-01-13] MEDS ORDERED: D5%-0.45NACL+KCL 20MEQ 1,000 ML IV SCH (20:00)
[2019-01-13 20:45] VITALS: BP 121/78
[2019-01-13] MEDS ORDERED: LORazepam 2 MG/ML, 1ML IVPush ONE (22:45)
[2019-01-13 22:52] VITALS: BP 143/88
[2019-01-13] MEDS ORDERED: ZOSYN PER PHARMACY MC PRN (23:00)
[2019-01-13] MEDS ORDERED: PROMETHAZINE 25 MG/ML, 1ML IM PRN (23:30)
[2019-01-13] MEDS ORDERED: PROMETHAZINE 25 MG/ML, 1ML IM ONE (23:30)
[2019-01-13] MEDS ORDERED: PROMETHAZINE 25 MG/ML, 1ML ONE (23:33)
[2019-01-13] MEDS ORDERED: IBUPROFEN 600 MG TABLET PO ONE (23:35)
[2019-01-13 23:57] LABS: BASOPHILS # (AUTO) 0.02 x10^3/uL (0-0.1); BASOPHILS % (AUTO) 0 % (0-1); EOSINOPHILS # (AUTO) 0.12 x10^3/uL (0-0.4); EOSINOPHILS % (AUTO) 1 % (1-7); LYMPHOCYTES # (AUTO) 0.52 x10^3/uL (1-3.4); LYMPHOCYTES % (AUTO) 4 % (22-44); MD NO; MEAN CORPUSCULAR HGB CONC 33.8 g/dL (32.4-35.8); MEAN PLATELET VOLUME 9.6 fL (7.4-10.4); MONOCYTES # (AUTO) 0.64 x10^3/uL (0.2-0.8); MONOCYTES % (AUTO) 5 % (2-9); NEUTROPHILS # (AUTO) 12.78 x10^3/uL (1.8-6.8); NEUTROPHILS % (AUTO) 91 % (42-75); PLATELET COUNT 252 x10^3/uL (130-400); RED BLOOD COUNT 4.64 x10^6/uL (3.82-5.3); RED CELL DISTRIBUTION WIDTH 14.4 % (9.6-15.2)
[2019-01-14] VITALS (11 sets, daily range): BP systolic 74–107; BP diastolic 46–71
[2019-01-14 00:06] LABS: ALANINE AMINOTRANSFERASE 165 U/L (12-78); ALBUMIN 2.6 g/dL (3.4-5.0); ANION GAP 8 mmol/L (5-15); CHLORIDE 106 mmol/L (98-107); CREATININE 0.85 mg/dL (0.55-1.02)
[2019-01-14 00:09] LABS: ALKALINE PHOSPHATASE 632 U/L (45-117); BILIRUBIN,TOTAL 1.7 mg/dL (0.2-1.0); TOTAL PROTEIN 6.2 g/dL (6.4-8.2)
[2019-01-14] MEDS: HYDROmorphone 2 MG/ML, 1ML IVPush PRN ×4 (00:25→21:41)
[2019-01-14] MEDS: PIPERACILLIN/TAZO/PMX 3.375GM 50 ML IV SCH ×5 (00:25→19:42)
[2019-01-14] MEDS ORDERED: SODIUM CHLORIDE 0.9% 1,000ML IVBOLUS ONE ×3 (00:30→07:30)
[2019-01-14 03:28] LABS: ALANINE AMINOTRANSFERASE 133 U/L (12-78); ALBUMIN 2.1 g/dL (3.4-5.0); ANION GAP 7 mmol/L (5-15); CHLORIDE 110 mmol/L (98-107)
[2019-01-14 03:30] LABS: ALKALINE PHOSPHATASE 495 U/L (45-117); BILIRUBIN,TOTAL 2.1 mg/dL (0.2-1.0)
[2019-01-14] MEDS: INSULIN LISPRO 100 UNITS/ML, PEN SQ-INSULIN SCH ×4 (07:00→20:59)
[2019-01-14] MEDS: FAMOTIDINE 20 MG/2 ML IVPush SCH ×2 (08:43→20:27)
[2019-01-14] MEDS: SODIUM CHLORIDE FLUSH 10ML SYR IVF SCH ×2 (08:43→20:59)
[2019-01-14 09:13] LABS: MEAN CORPUSCULAR HEMOGLOBIN 28.5 pg (27.0-34.8); MEAN CORPUSCULAR HGB CONC 33.1 g/dL (32.4-35.8); MEAN PLATELET VOLUME 10.5 fL (7.4-10.4); PLATELET COUNT 244 x10^3/uL (130-400); RED BLOOD COUNT 3.85 x10^6/uL (3.82-5.3); RED CELL DISTRIBUTION WIDTH 14.2 % (9.6-15.2)
[2019-01-14 09:35] LABS: MD YES
[2019-01-14 09:37] LABS: BAND#(MANUAL) 1.18 x10^3/uL; BANDS%(MANUAL) 8 % (0-7); LYMPH#(MANUAL) 0.44 x10^3/uL (1-3.4); LYMPHS% (MANUAL) 3 % (22-44); METAMYELOCYTES# (MANUAL) 0.15 x10^3/uL (0-0); METAMYELOCYTES% (MANUAL) 1 % (0-1); MONOS#(MANUAL) 1.18 x10^3/uL (0.3-2.7); MONOS% (MANUAL) 8 % (2-9); SEG#(MANUAL) 11.84 x10^3/uL (1.8-6.8); SEGS% (MANUAL) 80 % (42-75)
[2019-01-14 09:38] LABS: <RBC MORPHOLOGY> NORMAL
[2019-01-14 09:39] LABS: <PLATELET ESTIMATE> ADEQUATE; LARGE PLATELETS 1+
[2019-01-14] MEDS: D5%-0.45NACL+KCL 20MEQ 1,000 ML IV SCH (12:44)
[2019-01-14] MEDS: OXYcodone IR 5MG TABLET PO PRN ×3 (13:49→23:49)
[2019-01-14] MEDS: LORazepam 2 MG/ML, 1ML IVPush PRN ×2 (14:29→20:26)
[2019-01-15 01:23] VITALS: BP 100/66
[2019-01-15] MEDS: HYDROmorphone 2 MG/ML, 1ML IVPush PRN ×5 (01:25→22:14)
[2019-01-15] MEDS: D5%-0.45NACL+KCL 20MEQ 1,000 ML IV SCH ×2 (01:26→19:51)
[2019-01-15] MEDS: PIPERACILLIN/TAZO/PMX 3.375GM 50 ML IV SCH ×3 (01:30→18:32)
[2019-01-15 06:06] LABS: BASOPHILS # (AUTO) 0.01 x10^3/uL (0-0.1); BASOPHILS % (AUTO) 0 % (0-1); EOSINOPHILS # (AUTO) 0.62 x10^3/uL (0-0.4); EOSINOPHILS % (AUTO) 5 % (1-7); LYMPHOCYTES # (AUTO) 0.91 x10^3/uL (1-3.4); LYMPHOCYTES % (AUTO) 8 % (22-44); MD NO; MEAN CORPUSCULAR HGB CONC 33.3 g/dL (32.4-35.8); MEAN CORPUSCULAR VOLUME 87.2 fL (80-100); MEAN PLATELET VOLUME 10.1 fL (7.4-10.4); MONOCYTES # (AUTO) 0.91 x10^3/uL (0.2-0.8); MONOCYTES % (AUTO) 8 % (2-9); NEUTROPHILS % (AUTO) 80 % (42-75); PLATELET COUNT 217 x10^3/uL (130-400); RED BLOOD COUNT 3.69 x10^6/uL (3.82-5.3); RED CELL DISTRIBUTION WIDTH 14.3 % (9.6-15.2)
[2019-01-15 06:20] LABS: CHLORIDE 109 mmol/L (98-107)
[2019-01-15 06:28] LABS: ALANINE AMINOTRANSFERASE 116 U/L (12-78); ALBUMIN 1.7 g/dL (3.4-5.0); ALKALINE PHOSPHATASE 371 U/L (45-117); ANION GAP 6 mmol/L (5-15); BILIRUBIN,TOTAL 2.7 mg/dL (0.2-1.0); CALCIUM 7.3 mg/dL (8.5-10.1); CREATININE 0.69 mg/dL (0.55-1.02); TOTAL PROTEIN 4.8 g/dL (6.4-8.2)
[2019-01-15 06:42] VITALS: BP 95/61
[2019-01-15] MEDS: INSULIN LISPRO 100 UNITS/ML, PEN SQ-INSULIN SCH ×4 (07:00→19:59)
[2019-01-15] MEDS: SODIUM CHLORIDE FLUSH 10ML SYR IVF SCH ×2 (09:00→22:14)
[2019-01-15] MEDS: OXYcodone IR 5MG TABLET PO PRN ×3 (09:59→19:51)
[2019-01-15] MEDS: FAMOTIDINE 20 MG/2 ML IVPush SCH ×2 (09:59→22:14)
[2019-01-15 11:45] VITALS: BP 112/73
[2019-01-15 14:54] VITALS: BP 110/72
[2019-01-15] MEDS: LORazepam 2 MG/ML, 1ML IVPush PRN ×2 (15:07→23:59)
[2019-01-15 19:30] VITALS: BP 113/78
[2019-01-16] MEDS: PIPERACILLIN/TAZO/PMX 3.375GM 50 ML IV SCH ×2 (00:06→05:43)
[2019-01-16 01:59] VITALS: BP 111/76
[2019-01-16] MEDS ORDERED: ACETAMINOPHEN 325 MG TABLET PO PRN (02:30)
[2019-01-16] MEDS ORDERED: IBUPROFEN 600 MG TABLET PO ONE (03:00)
[2019-01-16] MEDS: HYDROmorphone 2 MG/ML, 1ML IVPush PRN ×2 (03:02→07:37)
[2019-01-16] MEDS: OXYcodone IR 5MG TABLET PO PRN ×3 (05:43→19:25)
[2019-01-16 05:50] LABS: CHLORIDE 109 mmol/L (98-107)
[2019-01-16 06:04] LABS: ALANINE AMINOTRANSFERASE 115 U/L (12-78); ALBUMIN 2.1 g/dL (3.4-5.0); ALKALINE PHOSPHATASE 394 U/L (45-117); ANION GAP 6 mmol/L (5-15); BILIRUBIN,TOTAL 3.5 mg/dL (0.2-1.0); CALCIUM 7.8 mg/dL (8.5-10.1); CREATININE 0.63 mg/dL (0.55-1.02); TOTAL PROTEIN 5.3 g/dL (6.4-8.2)
[2019-01-16] MEDS: INSULIN LISPRO 100 UNITS/ML, PEN SQ-INSULIN SCH ×4 (07:00→21:00)
[2019-01-16 07:36] VITALS: BP 105/73
[2019-01-16 08:13] LABS: BASOPHILS # (AUTO) 0.06 x10^3/uL (0-0.1); BASOPHILS % (AUTO) 1 % (0-1); EOSINOPHILS # (AUTO) 0.41 x10^3/uL (0-0.4); EOSINOPHILS % (AUTO) 5 % (1-7); LYMPHOCYTES # (AUTO) 1.05 x10^3/uL (1-3.4); LYMPHOCYTES % (AUTO) 12 % (22-44); MD NO; MEAN CORPUSCULAR HEMOGLOBIN 28.3 pg (27.0-34.8); MEAN CORPUSCULAR VOLUME 85.6 fL (80-100); MEAN PLATELET VOLUME 11.3 fL (7.4-10.4); MONOCYTES # (AUTO) 0.77 x10^3/uL (0.2-0.8); MONOCYTES % (AUTO) 9 % (2-9); NEUTROPHILS # (AUTO) 6.62 x10^3/uL (1.8-6.8); NEUTROPHILS % (AUTO) 74 % (42-75); PLATELET COUNT 278 x10^3/uL (130-400); RED BLOOD COUNT 3.94 x10^6/uL (3.82-5.3); RED CELL DISTRIBUTION WIDTH 14.4 % (9.6-15.2)
[2019-01-16] MEDS: SODIUM CHLORIDE FLUSH 10ML SYR IVF SCH ×2 (09:00→21:41)
[2019-01-16] MEDS: FAMOTIDINE 20 MG/2 ML IVPush SCH (11:01)
[2019-01-16] MEDS: metroNIDAZOLE 500 MG TABLET PO SCH ×2 (11:01→19:23)
[2019-01-16] MEDS: CIPROFLOXACIN 500 MG TABLET PO SCH ×2 (11:01→21:42)
[2019-01-16] MEDS: D5%-0.45NACL+KCL 20MEQ 1,000 ML IV SCH (11:08)
[2019-01-16] MEDS: LORazepam 2 MG/ML, 1ML IVPush PRN (17:09)
[2019-01-16 17:16] VITALS: BP 104/74
[2019-01-16 20:28] VITALS: BP 104/65
[2019-01-16] MEDS: FAMOTIDINE 20 MG TABLET PO SCH (21:42)
[2019-01-17 00:46] VITALS: BP 104/68
[2019-01-17] MEDS: metroNIDAZOLE 500 MG TABLET PO SCH ×2 (02:15→09:38)
[2019-01-17] MEDS: D5%-0.45NACL+KCL 20MEQ 1,000 ML IV SCH (02:15)
[2019-01-17] MEDS: OXYcodone IR 5MG TABLET PO PRN ×2 (02:20→09:38)
[2019-01-17] MEDS: INSULIN LISPRO 100 UNITS/ML, PEN SQ-INSULIN SCH ×2 (07:00→11:00)
[2019-01-17 07:30] VITALS: BP 101/72
[2019-01-17 08:34] LABS: BASOPHILS # (AUTO) 0.04 x10^3/uL (0-0.1); BASOPHILS % (AUTO) 0 % (0-1); EOSINOPHILS # (AUTO) 0.34 x10^3/uL (0-0.4); EOSINOPHILS % (AUTO) 3 % (1-7); LYMPHOCYTES # (AUTO) 0.94 x10^3/uL (1-3.4); LYMPHOCYTES % (AUTO) 10 % (22-44); MD NO; MEAN CORPUSCULAR HEMOGLOBIN 28.6 pg (27.0-34.8); MEAN CORPUSCULAR HGB CONC 33.5 g/dL (32.4-35.8); MEAN CORPUSCULAR VOLUME 85.2 fL (80-100); MEAN PLATELET VOLUME 10.5 fL (7.4-10.4); MONOCYTES # (AUTO) 1.09 x10^3/uL (0.2-0.8); MONOCYTES % (AUTO) 11 % (2-9); NEUTROPHILS # (AUTO) 7.55 x10^3/uL (1.8-6.8); NEUTROPHILS % (AUTO) 76 % (42-75); PLATELET COUNT 319 x10^3/uL (130-400); RED BLOOD COUNT 4.15 x10^6/uL (3.82-5.3); RED CELL DISTRIBUTION WIDTH 14.2 % (9.6-15.2)
[2019-01-17 08:43] LABS: ALANINE AMINOTRANSFERASE 114 U/L (12-78); ALBUMIN 2.2 g/dL (3.4-5.0); ANION GAP 8 mmol/L (5-15); CALCIUM 7.9 mg/dL (8.5-10.1); CHLORIDE 105 mmol/L (98-107); CREATININE 0.63 mg/dL (0.55-1.02)
[2019-01-17 08:46] LABS: ALKALINE PHOSPHATASE 454 U/L (45-117); BILIRUBIN,TOTAL 4.6 mg/dL (0.2-1.0); TOTAL PROTEIN 5.8 g/dL (6.4-8.2)
[2019-01-17] MEDS: FAMOTIDINE 20 MG TABLET PO SCH (09:38)
[2019-01-17] MEDS: SODIUM CHLORIDE FLUSH 10ML SYR IVF SCH (09:38)
[2019-01-17] MEDS: CIPROFLOXACIN 500 MG TABLET PO SCH (09:38)
[2019-01-17] MEDS ORDERED: METR500T PO (12:28)
[2019-01-17] MEDS ORDERED: CIPR500T87 PO (12:28)
== END 2019-01-17 14:20 | disposition home or self-care (01) | DRG 871 ==
LOC: ED 18:12 → EDIP 18:13 → ED 18:20 → 4EST 19:32 → DCLOUNGE 01-17 14:13
PROVIDERS: ADMIT Internal Medicine; ATTEND Internal Medicine
PROC: 0DJ08ZZ Inspection of Upper Intestinal Tract, Via Natural or Artificial Opening Endoscopic (ICD-10-PCS; principal; 2019-01-12 09:00)
PROC: 0F798DZ Dilation of Common Bile Duct with Intraluminal Device, Via Natural or Artificial Opening Endoscopic (ICD-10-PCS; 2019-01-13)
PROC: BF111ZZ Fluoroscopy of Biliary and Pancreatic Ducts using Low Osmolar Contrast (ICD-10-PCS; 2019-01-13)
DX: A41.9 Sepsis, unspecified organism (principal); K83.1 Obstruction of bile duct; C25.0 Malignant neoplasm of head of pancreas; K31.1 Adult hypertrophic pyloric stenosis; K83.09 Other cholangitis; D64.9 Anemia, unspecified; E87.6 Hypokalemia; G89.29 Other chronic pain; K21.9 Gastro-esophageal reflux disease without esophagitis; K44.9 Diaphragmatic hernia without obstruction or gangrene; K75.4 Autoimmune hepatitis; R62.7 Adult failure to thrive; R73.9 Hyperglycemia, unspecified; Z68.21 Body mass index [BMI] 21.0-21.9, adult; Z80.0 Family history of malignant neoplasm of digestive organs; Z80.1 Family history of malignant neoplasm of trachea, bronchus and lung; Z85.07 Personal history of malignant neoplasm of pancreas; Z87.442 Personal history of urinary calculi; Z98.84 Bariatric surgery status
CPT/HCPCS: 36415; 84145; 99285; J3490; 74177; 74181; 80053; 82962; 83605; 83690; 83735; 85025; 87040; 96361; 96374; 96375; 96376; G0378; J0690; J1100; J1170; J2250; J2405; J2543; J2550; J2704; J3010; J3480; C1769; C1874; J0330; J1815; J2060; J3475; J7030; J7040

== ENCOUNTER → 2019-01-10 | Outpatient (CLI) | payer OTHER ==
[~2019-01-10] MED LIST: MORPHINE PO; OMNIPAQUE 350 MG/ML, 100ML BOTTLE ONE; ONDA4TAB13 PO; OXYC-302 PO; OXYC10TA6 PO
== END | disposition home or self-care (01) ==
LOC: RAD 09:44
PROVIDERS: ATTEND Internal Medicine Hematology & Oncology
DX: C25.0 Malignant neoplasm of head of pancreas (principal); K83.8 Other specified diseases of biliary tract; K76.0 Fatty (change of) liver, not elsewhere classified
CPT/HCPCS: 76700

== ENCOUNTER 2019-01-21 05:44 | Emergency (ER) | payer OTHER ==
[~2019-01-21] VITALS: Ht 170.2 cm; Wt 50.0 kg
[~2019-01-21 05:44] MED LIST changes: +CIPR500T87 PO; +METR500T PO; +MORPHINE PO; +OXYC10TA6 PO
--- NOTE | 2019-01-21 05:51 | NUR ---
PT STATES GENERALIZED PAIN "BREAKTHROUGH PAIN" IS CHIEF COMPLAINT. STATES BILATERAL FLANK PAIN SINCE OUT OF HOSPITAL 01/17, AND URINATING BRIGHT ORANGE. DENIES ANY FURTHER GI/ S/S. PT STATES RECENT HOSPITALIZATION FOR INCREASED BILIRUBIN AND HYPOKALEMIA. UNABLE TO START CHEMO LAST TUESDAY BECAUSE OF HOSPITALIZATION.
[2019-01-21] MEDS ORDERED: SODIUM CHLORIDE FLUSH 10ML SYR IVF ONE (06:00)
[2019-01-21] MEDS ORDERED: SODIUM CHLORIDE 0.9% 1,000ML IVBOLUS ONE (06:00)
[2019-01-21] MEDS ORDERED: ONDANSETRON 2MG/ML, 2ML IVPush ONE (06:00)
[2019-01-21] MEDS ORDERED: ONDANSETRON 2MG/ML, 2ML ONE (06:06)
[2019-01-21] MEDS ORDERED: HYDROmorphone 1 MG/ML, 1ML ONE ×2 (06:07→07:07)
[2019-01-21] MEDS: HYDROmorphone 2 MG/ML, 1ML IVPush PRN ×2 (06:12→07:12)
--- NOTE | 2019-01-21 06:13 | NUR ---
PT MEDICATED PER JAN. PROMPTED FOR UA. STATES UNABLE TO AT THIS TIME. PT AWARE OF NEED OF UA. CALL LIGHT WITHIN REACH.
[2019-01-21 06:27] LABS: BASOPHILS # (AUTO) 0.12 x10^3/uL (0-0.1); BASOPHILS % (AUTO) 1 % (0-1); EOSINOPHILS # (AUTO) 0.55 x10^3/uL (0-0.4); EOSINOPHILS % (AUTO) 7 % (1-7); LYMPHOCYTES # (AUTO) 1.56 x10^3/uL (1-3.4); LYMPHOCYTES % (AUTO) 19 % (22-44); MD NO; MEAN CORPUSCULAR HEMOGLOBIN 29.2 pg (27.0-34.8); MEAN CORPUSCULAR HGB CONC 33.9 g/dL (32.4-35.8); MEAN CORPUSCULAR VOLUME 86.2 fL (80-100); MEAN PLATELET VOLUME 9.6 fL (7.4-10.4); MONOCYTES # (AUTO) 0.69 x10^3/uL (0.2-0.8); MONOCYTES % (AUTO) 8 % (2-9); NEUTROPHILS % (AUTO) 65 % (42-75); PLATELET COUNT 538 x10^3/uL (130-400); RED BLOOD COUNT 4.06 x10^6/uL (3.82-5.3); RED CELL DISTRIBUTION WIDTH 14.8 % (9.6-15.2)
[2019-01-21 06:36] LABS: ALANINE AMINOTRANSFERASE 52 U/L (12-78); ALBUMIN 2.3 g/dL (3.4-5.0); ANION GAP 5 mmol/L (5-15); CALCIUM 8.1 mg/dL (8.5-10.1); CHLORIDE 111 mmol/L (98-107)
[2019-01-21 06:38] LABS: ALKALINE PHOSPHATASE 443 U/L (45-117); BILIRUBIN,TOTAL 1.4 mg/dL (0.2-1.0); TOTAL PROTEIN 6.1 g/dL (6.4-8.2)
--- NOTE | 2019-01-21 06:51 | NUR ---
PT BEDSIDE REPORT TO VANGIE JOSEPH.
--- NOTE | 2019-01-21 07:04 | NUR ---
RECEIVED REPORT FROM DAVID JOSEPH.
--- NOTE | 2019-01-21 07:09 | NUR ---
pt stating abd pain of 06/16/. dilaudid given 0.5 mg.
--- NOTE | 2019-01-21 08:15 | NUR ---
pt walked to br and clean catch urine obtained
[2019-01-21 08:26] VITALS: BP 110/66
--- NOTE | 2019-01-21 08:26 | NUR ---
pt with abd pain 06/16.
--- NOTE | 2019-01-21 08:29 | NUR ---
pt given dilaudid 0.5mg iv.
[2019-01-21 08:42] LABS: MICROSCOPIC INDICATED
[2019-01-21 08:54] LABS: CULTURE INDICATED? YES
[2019-01-21] MEDS ORDERED: HYDROmorphone 1 MG/ML, 1ML IV ONE (09:30)
--- NOTE | 2019-01-21 09:56 | NUR ---
pt discharged with discharge instructions and follow up instructions. pt up ambulatory and stable on feet.
== END 2019-01-21 10:00 | disposition home or self-care (01) ==
LOC: ED 09:11
DX: N30.00 Acute cystitis without hematuria (principal)
CPT/HCPCS: 36415; 80053; 81001; 83690; 85025; 87086; 93005; 96374; 96375; 96376; 99284; J1170; J2405; J7030; 87106

== ENCOUNTER 2019-01-22 15:56 | Inpatient (IN) | payer OTHER ==
[~2019-01-22] VITALS: Ht 162.6 cm; Wt 57.0 kg
[2019-01-22] MEDS ORDERED: MORPHINE SULFATE 4 MG/ML, 1ML ONE ×2 (16:53→18:16)
[2019-01-22] MEDS ORDERED: ONDANSETRON 2MG/ML, 2ML ONE (16:59)
[2019-01-22] MEDS ORDERED: SODIUM CHLORIDE FLUSH 10ML SYR IVF ONE (17:00)
[2019-01-22] MEDS ORDERED: ONDANSETRON 2MG/ML, 2ML IVPush ONE (17:00)
[2019-01-22] MEDS: MORPHINE SULFATE 4 MG/ML, 1ML IVPush PRN ×2 (17:04→18:16)
[2019-01-22 17:07] LABS: BASOPHILS # (AUTO) 0.03 x10^3/uL (0-0.1); BASOPHILS % (AUTO) 0 % (0-1); EOSINOPHILS # (AUTO) 0.09 x10^3/uL (0-0.4); EOSINOPHILS % (AUTO) 1 % (1-7); LYMPHOCYTES # (AUTO) 1.17 x10^3/uL (1-3.4); LYMPHOCYTES % (AUTO) 10 % (22-44); MD NO; MEAN CORPUSCULAR HEMOGLOBIN 28.5 pg (27.0-34.8); MEAN CORPUSCULAR VOLUME 86.2 fL (80-100); MEAN PLATELET VOLUME 9.2 fL (7.4-10.4); MONOCYTES # (AUTO) 0.69 x10^3/uL (0.2-0.8); MONOCYTES % (AUTO) 6 % (2-9); NEUTROPHILS # (AUTO) 9.35 x10^3/uL (1.8-6.8); NEUTROPHILS % (AUTO) 83 % (42-75); PLATELET COUNT 663 x10^3/uL (130-400); RED BLOOD COUNT 4.48 x10^6/uL (3.82-5.3); RED CELL DISTRIBUTION WIDTH 15.6 % (9.6-15.2)
[2019-01-22 17:16] LABS: ALANINE AMINOTRANSFERASE 43 U/L (12-78); ALBUMIN 2.5 g/dL (3.4-5.0); ANION GAP 5 mmol/L (5-15); CALCIUM 8.4 mg/dL (8.5-10.1); CHLORIDE 111 mmol/L (98-107); CREATININE 0.51 mg/dL (0.55-1.02)
[2019-01-22 17:20] LABS: ALKALINE PHOSPHATASE 437 U/L (45-117); BILIRUBIN,TOTAL 1.1 mg/dL (0.2-1.0); TOTAL PROTEIN 6.6 g/dL (6.4-8.2); TROPONIN I < 0.015 ng/mL (0.000-0.045)
--- NOTE | 2019-01-22 17:27 | NUR ---
PT UP FOR RECHECK
--- NOTE | 2019-01-22 18:15 | NUR ---
REPORT GIVEN TO JAKE DIETZ
[2019-01-22] MEDS ORDERED: LIDODERM 5% PATCH TD PRN (20:00)
[2019-01-22] MEDS ORDERED: BISACODYL 10 MG SUPP PR PRN (20:00)
[2019-01-22] MEDS ORDERED: LABETALOL 5MG/ML, 20ML IVPush PRN (20:00)
[2019-01-22] MEDS ORDERED: ENOXAPARIN 40 MG/0.4 ML SQ SCH (20:00)
[2019-01-22] MEDS ORDERED: ONDANSETRON 2MG/ML, 2ML IVPush PRN (20:00)
[2019-01-22 20:35] VITALS: BP 112/78
[2019-01-22] MEDS: morphine SULFATE 10 MG/ML, 1ML IVPush PRN (20:52)
[2019-01-22] MEDS ORDERED: MORPHINE ER MC SCH (21:00)
[2019-01-22] MEDS: OXYcodone IR 5MG TABLET PO PRN (21:15)
[2019-01-22] MEDS: LORazepam 1MG TABLET PO PRN (23:24)
[2019-01-23 01:27] VITALS: BP 100/66
[2019-01-23] MEDS: OXYcodone IR 5MG TABLET PO PRN ×3 (01:30→11:52)
[2019-01-23 03:06] LABS: CLOSTRIDIUM DIFFICILE ANTIGEN NEGATIVE; CLOSTRIDIUM DIFFICILE TOXIN NEGATIVE (Negative)
[2019-01-23] MEDS: LORazepam 1MG TABLET PO PRN ×2 (04:09→16:37)
[2019-01-23 05:23] LABS: BASOPHILS # (AUTO) 0.04 x10^3/uL (0-0.1); BASOPHILS % (AUTO) 1 % (0-1); EOSINOPHILS % (AUTO) 6 % (1-7); LYMPHOCYTES # (AUTO) 2.22 x10^3/uL (1-3.4); LYMPHOCYTES % (AUTO) 26 % (22-44); MD NO; MEAN CORPUSCULAR HEMOGLOBIN 29.1 pg (27.0-34.8); MEAN CORPUSCULAR HGB CONC 33.5 g/dL (32.4-35.8); MEAN PLATELET VOLUME 9.7 fL (7.4-10.4); MONOCYTES % (AUTO) 11 % (2-9); NEUTROPHILS # (AUTO) 4.78 x10^3/uL (1.8-6.8); NEUTROPHILS % (AUTO) 57 % (42-75); PLATELET COUNT 566 x10^3/uL (130-400); RED BLOOD COUNT 3.69 x10^6/uL (3.82-5.3); RED CELL DISTRIBUTION WIDTH 15.3 % (9.6-15.2)
[2019-01-23 05:26] LABS: ALANINE AMINOTRANSFERASE 33 U/L (12-78); ALBUMIN 2.2 g/dL (3.4-5.0); ANION GAP 6 mmol/L (5-15); CALCIUM 7.6 mg/dL (8.5-10.1); CHLORIDE 110 mmol/L (98-107); CREATININE 0.57 mg/dL (0.55-1.02)
[2019-01-23 05:29] LABS: ALKALINE PHOSPHATASE 349 U/L (45-117); BILIRUBIN,TOTAL 0.8 mg/dL (0.2-1.0); TOTAL PROTEIN 5.3 g/dL (6.4-8.2)
[2019-01-23 07:26] VITALS: BP 92/62
[2019-01-23] MEDS: morphine SULFATE 10 MG/ML, 1ML IVPush PRN ×2 (07:51→13:25)
[2019-01-23 13:37] VITALS: BP 95/64
[2019-01-23] MEDS ORDERED: OXYC10TA6 PO (15:29)
[2019-01-23] MEDS ORDERED: MORPHINE PO (15:29)
== END 2019-01-23 16:50 | disposition home or self-care (01) | DRG 948 ==
LOC: ED 17:43 → EDIP 17:47 → 3NW 18:28 → DCLOUNGE 01-23 16:42
PROVIDERS: ADMIT Internal Medicine; ATTEND Internal Medicine
DX: G89.3 Neoplasm related pain (acute) (chronic) (principal); C25.9 Malignant neoplasm of pancreas, unspecified; E87.6 Hypokalemia; K21.9 Gastro-esophageal reflux disease without esophagitis; Z51.5 Encounter for palliative care; M54.5 Low back pain; R19.7 Diarrhea, unspecified; R74.8 Abnormal levels of other serum enzymes; D47.3 Essential (hemorrhagic) thrombocythemia; Z80.0 Family history of malignant neoplasm of digestive organs; Z80.1 Family history of malignant neoplasm of trachea, bronchus and lung; Z85.07 Personal history of malignant neoplasm of pancreas; Z87.442 Personal history of urinary calculi; Z90.49 Acquired absence of other specified parts of digestive tract
CPT/HCPCS: 36415; 71045; 80053; 83605; 83690; 84484; 85025; 87324; 93005; 96374; G0378; J1650; J2405; J2270

== ENCOUNTER 2019-01-26 15:22 | Emergency (ER) | payer OTHER ==
[~2019-01-26] VITALS: Ht 162.6 cm; Wt 57.0 kg
--- NOTE | 2019-01-26 15:39 | NUR ---
PT. ARRIVES BY [facility] WITH C/O NAUSEA AND VOMITING, INABILITY TO RETAIN FLUIDS AND ASSOCIATED ABD. PAIN. PT. WAS MEDICATED AT THE [facility] WITH 16MG ZOFRAN WELL 1 LITER FLUID. PT. WAS GIVEN 25MG PHENERGAN WELL 10MG MORPHINE IV BY [facility] TO TREAT THE PT.'S SYMPTOMS INSULATION NOZZLEMAN. PT. HAS THE CP MONITOR IN PLACE. IV ACCESS WAS ESTABLISHED IN THE FIELD. PT. STATES RELIEF FROM MEDICATIONS. PT.'S HOB IS ELEVATED GREATER THAN 30 DEGREES. SIDERAILS REMAIN UP X2 WITH THE CALL LIGHT IN PLACE.
--- NOTE | 2019-01-26 15:40 | NUR ---
PT WAS AT HER CHEMO APPT AND BECAME TO HAVE NAUSESA. UNABLE TO KEEP THINGS DOWN. PT HAS PANCREATIC CANCER. PT IS ALERT, ORIENTED, WITH NAD. PT IS CONNECTED TO THE MONITOR. CALL LIGHT WITHIN REACH.
--- NOTE | 2019-01-26 15:42 | NUR ---
LAB AT BEDSIDE.
[2019-01-26] MEDS ORDERED: HYDROmorphone 1 MG/ML, 1ML ONE (15:49)
--- NOTE | 2019-01-26 15:56 | NUR ---
PT IS AWARE OF [facility] NEED FOR A URINE SAMPLE. PT DOES NOT HAVE TO GO AT THIS TIME.
[2019-01-26] MEDS ORDERED: SODIUM CHLORIDE FLUSH 10ML SYR IVF ONE (16:00)
[2019-01-26] MEDS ORDERED: SODIUM CHLORIDE 0.9% 1,000ML IVBOLUS ONE (16:00)
[2019-01-26] MEDS ORDERED: HYDROmorphone 2 MG/ML, 1ML IVPush PRN (16:00)
[2019-01-26 16:09] LABS: BASOPHILS # (AUTO) 0.03 x10^3/uL (0-0.1); BASOPHILS % (AUTO) 0 % (0-1); EOSINOPHILS # (AUTO) 0.02 x10^3/uL (0-0.4); EOSINOPHILS % (AUTO) 0 % (1-7); LYMPHOCYTES # (AUTO) 1.07 x10^3/uL (1-3.4); LYMPHOCYTES % (AUTO) 17 % (22-44); MD NO; MEAN CORPUSCULAR HEMOGLOBIN 29.3 pg (27.0-34.8); MEAN CORPUSCULAR HGB CONC 33.8 g/dL (32.4-35.8); MEAN CORPUSCULAR VOLUME 86.7 fL (80-100); MEAN PLATELET VOLUME 9.1 fL (7.4-10.4); MONOCYTES # (AUTO) 0.24 x10^3/uL (0.2-0.8); MONOCYTES % (AUTO) 4 % (2-9); NEUTROPHILS # (AUTO) 4.95 x10^3/uL (1.8-6.8); NEUTROPHILS % (AUTO) 78 % (42-75); PLATELET COUNT 561 x10^3/uL (130-400); RED BLOOD COUNT 4.35 x10^6/uL (3.82-5.3); RED CELL DISTRIBUTION WIDTH 15.3 % (9.6-15.2)
[2019-01-26 16:12] LABS: ALANINE AMINOTRANSFERASE 43 U/L (12-78); ALBUMIN 2.8 g/dL (3.4-5.0); ANION GAP 3 mmol/L (5-15); CALCIUM 8.3 mg/dL (8.5-10.1); CHLORIDE 108 mmol/L (98-107); CREATININE 0.66 mg/dL (0.55-1.02)
[2019-01-26 16:14] LABS: ALKALINE PHOSPHATASE 357 U/L (45-117); BILIRUBIN,TOTAL 0.9 mg/dL (0.2-1.0); TOTAL PROTEIN 6.6 g/dL (6.4-8.2)
--- NOTE | 2019-01-26 16:32 | NUR ---
Pt is resting in bed with eyes closed, respirations equal and non labored. NAD. Pt is connected to the monitor. Call light within reach.
[2019-01-26 17:25] VITALS: BP 100/71
--- NOTE | 2019-01-26 17:25 | NUR ---
PT GOT UP TO BEDSIDE COMMODE, STAND BY ASSIST, TO PROVIDE URINE SAMPLE.
--- NOTE | 2019-01-26 17:25 | NUR ---
PT GIVEN WATER TO DRINK FOR PO CHALLENGE.
[2019-01-26 17:37] LABS: MICROSCOPIC NOT IND
[2019-01-26 17:39] LABS: CULTURE INDICATED? NO
--- NOTE | 2019-01-26 18:06 | NUR ---
MD at bedside several times. Pt does not want to be discharged and is looking for many different reasons to be admitted. Pt asked to have humberto ronn removed, oncology left it in since she was being transferred to the ED and we may need it.
--- NOTE | 2019-01-26 18:32 | NUR ---
Patient given discharge instructions and they have confirmed that they understand the instructions. Patient ambulatory with steady gait.
== END 2019-01-26 18:35 | disposition home or self-care (01) ==
LOC: ED 17:03
DX: R11.2 Nausea with vomiting, unspecified (principal); C25.9 Malignant neoplasm of pancreas, unspecified
CPT/HCPCS: 36415; 71045; 80053; 81003; 83605; 83690; 85025; 96361; 96374; 99284; J1170; J7030

== ENCOUNTER 2019-02-06 22:07 | Emergency (ER) | payer OTHER ==
[~2019-02-06] VITALS: Ht 162.6 cm; Wt 53.6 kg
[2019-02-06] MEDS ORDERED: LORazepam 2 MG/ML, 1ML ONE (22:46)
--- NOTE | 2019-02-06 22:55 | NUR ---
THIS IS 48 Y/O FEMALE THAT ARRIVES FROM HOME AFTER HER DOG ACCIDENTLY PULLED HER CHEMO PUMP CASUING A POSSIBLE NEEDLE DISLODGEMENT AND INFILTRATION TO LEFT CHEST AROUND IMPLANTED PORT. CHEMO WAS FLORURACIL. COLD COMPRESS PROVIDED. VSS PT GIVEN ATIVAN TO HELP RELAX.
[2019-02-06] MEDS ORDERED: HYDROmorphone 1 MG/ML, 1ML VIAL ONE (23:30)
[2019-02-07] MEDS ORDERED: HYDROmorphone 1 MG/ML, 1ML AMP IV ONE
[2019-02-07] MEDS ORDERED: LORazepam 2 MG/ML, 1ML IVPush ONE
--- NOTE | 2019-02-07 00:05 | NUR ---
ONC RNs IN ASSISTING WITH CHEMO MEDS.
--- NOTE | 2019-02-07 00:15 | NUR ---
PAGE PLACED OUT TO ONC PUMP CALL RN TO RESTART PUMP CHEMO INFUSION.
--- NOTE | 2019-02-07 00:24 | NUR ---
PUMP CONNECTED BACK TO PORT AFTER BLOOD RETURN WAS CONFIRMED. TRAILER TECHNICIAN RN SPOKE WITH THIS RN AND DR. SETH ON HOW TO RESTART PUMP. MD SETH RESTARTED PUMP AT THIS TIME TO CONTINUE TO DELIVER CHEMOTHERAPY PER TRAILER TECHNICIAN ONC .
[2019-02-07 00:46] VITALS: BP 98/53
== END 2019-02-07 00:49 | disposition home or self-care (01) ==
LOC: ED 02-07 00:43
DX: T82.598A Other mechanical complication of other cardiac and vascular devices and implants, initial encounter (principal); F41.9 Anxiety disorder, unspecified
CPT/HCPCS: 96374; 99283; J1170

== ENCOUNTER 2019-02-28 11:21 | Inpatient (IN) | payer OTHER ==
[~2019-02-28] VITALS: Ht 162.6 cm; Wt 56.8 kg
[2019-02-28] MEDS ORDERED: MORPHINE SULFATE 4 MG/ML, 1ML ONE ×2 (11:56→14:04)
[2019-02-28] MEDS ORDERED: SODIUM CHLORIDE FLUSH 10ML SYR IVF ONE (12:00)
[2019-02-28] MEDS: MORPHINE SULFATE 4 MG/ML, 1ML IVPush PRN ×2 (12:11→14:07)
[2019-02-28 12:23] LABS: ALBUMIN 2.1 g/dL (3.4-5.0); CALCIUM 7.4 mg/dL (8.5-10.1); CHLORIDE 103 mmol/L (98-107); CREATININE 0.64 mg/dL (0.55-1.02)
[2019-02-28 12:29] LABS: ANION GAP 12 mmol/L (5-15)
[2019-02-28 12:41] LABS: BASOPHILS # (AUTO) 0.02 x10^3/uL (0-0.1); BASOPHILS % (AUTO) 0 % (0-1); EOSINOPHILS # (AUTO) 0.06 x10^3/uL (0-0.4); EOSINOPHILS % (AUTO) 1 % (1-7); LYMPHOCYTES # (AUTO) 1.74 x10^3/uL (1-3.4); LYMPHOCYTES % (AUTO) 23 % (22-44); MD NO; MEAN CORPUSCULAR HEMOGLOBIN 27.7 pg (27.0-34.8); MEAN CORPUSCULAR HGB CONC 33.3 g/dL (32.4-35.8); MEAN CORPUSCULAR VOLUME 83.3 fL (80-100); MEAN PLATELET VOLUME 9.8 fL (7.4-10.4); MONOCYTES # (AUTO) 0.72 x10^3/uL (0.2-0.8); MONOCYTES % (AUTO) 9 % (2-9); NEUTROPHILS # (AUTO) 5.14 x10^3/uL (1.8-6.8); NEUTROPHILS % (AUTO) 67 % (42-75); PLATELET COUNT 367 x10^3/uL (130-400); RED BLOOD COUNT 4.04 x10^6/uL (3.82-5.3); RED CELL DISTRIBUTION WIDTH 14.5 % (9.6-15.2)
[2019-02-28] MEDS ORDERED: POTASSIUM CHLORIDE 10% 40 MEQ/30 ML UDC ONE (12:59)
[2019-02-28] MEDS ORDERED: POTASSIUM CHLORIDE 10% 40 MEQ/30 ML UDC PO ONE (13:00)
[2019-02-28] MEDS ORDERED: MAGNESIUM SULFATE PMX 2GM/50ML 50 ML IV ONE ×2 (13:00→16:05)
[2019-02-28] MEDS ORDERED: POTASSIUM CHLORIDE 40 MEQ in SODIUM CHLORIDE 0.9% 500 ML IV ONE (13:00)
--- NOTE | 2019-02-28 13:14 | NUR ---
assumed care of pt while primary rn at lunch. pt refusing liquid potassium and wanting pills. md aware.
[2019-02-28] MEDS ORDERED: POTASSIUM CHLORIDE 20 MEQ TAB.ER.PRT ONE ×2 (13:19→13:31)
[2019-02-28] MEDS ORDERED: POTASSIUM CHLORIDE 20 MEQ TAB.ER.PRT PO ONE ×2 (13:30→14:00)
[2019-02-28] MEDS ORDERED: MAGNESIUM SULFATE PMX 2GM/50ML 50 ML ONE (13:32)
[2019-02-28 13:40] LABS: CULTURE INDICATED? YES; MICROSCOPIC INDICATED
--- NOTE | 2019-02-28 13:51 | NUR ---
pt laying on gurney awake & comfortable, responds approp to staff, NAD, comfort measures provided, call light within reach.
[2019-02-28] MEDS ORDERED: MAGNESIUM SULFATE 4 GM in SODIUM CHLORIDE 0.9% 100 ML IV ONE (15:00)
[2019-02-28] MEDS: POTASSIUM CHLORIDE 20 MEQ TAB.ER.PRT PO SCH ×3 (15:00→21:00)
[2019-02-28] MEDS ORDERED: ONDANSETRON 2MG/ML, 2ML IVPush PRN (15:00)
[2019-02-28] MEDS ORDERED: ONDANSETRON ODT 4 MG PO PRN (15:00)
--- NOTE | 2019-02-28 15:05 | NUR ---
pt continues laying on gurney awake & comfortable, responds approp to staff, NAD, comfort measures provided, call light within reach.
[2019-02-28] MEDS ORDERED: OXYC15TA PO (15:28)
[2019-02-28] MEDS ORDERED: MORP30TA81 PO (15:28)
--- NOTE | 2019-02-28 15:45 | NUR ---
Pt to be admitted to [facility], room [facility]. Report called to Abelino.
[2019-02-28] MEDS ORDERED: ENOXAPARIN 40 MG/0.4 ML SQ SCH (16:30)
[2019-02-28 16:32] VITALS: BP 92/67
[2019-02-28 16:48] VITALS: BP 92/67
[2019-02-28] MEDS: NS + 20MEQ KCL 1,000 ML IV SCH (17:48)
[2019-02-28 20:10] VITALS: BP 93/66
[2019-02-28] MEDS: OXYcodone IR 5MG TABLET PO PRN (22:47)
[2019-03-01 02:00] VITALS: BP 91/63
[2019-03-01] MEDS: NS + 20MEQ KCL 1,000 ML IV SCH ×3 (03:04→19:57)
[2019-03-01] MEDS: OXYcodone IR 5MG TABLET PO PRN ×4 (03:04→19:57)
[2019-03-01 06:03] LABS: BASOPHILS # (AUTO) 0.07 x10^3/uL (0-0.1); BASOPHILS % (AUTO) 1 % (0-1); EOSINOPHILS # (AUTO) 0.07 x10^3/uL (0-0.4); EOSINOPHILS % (AUTO) 1 % (1-7); LYMPHOCYTES # (AUTO) 1.57 x10^3/uL (1-3.4); LYMPHOCYTES % (AUTO) 26 % (22-44); MD NO; MEAN CORPUSCULAR HGB CONC 32.9 g/dL (32.4-35.8); MEAN CORPUSCULAR VOLUME 85.1 fL (80-100); MEAN PLATELET VOLUME 9.8 fL (7.4-10.4); MONOCYTES # (AUTO) 0.65 x10^3/uL (0.2-0.8); MONOCYTES % (AUTO) 11 % (2-9); NEUTROPHILS # (AUTO) 3.59 x10^3/uL (1.8-6.8); NEUTROPHILS % (AUTO) 60 % (42-75); PLATELET COUNT 282 x10^3/uL (130-400); RED BLOOD COUNT 3.58 x10^6/uL (3.82-5.3); RED CELL DISTRIBUTION WIDTH 14.3 % (9.6-15.2)
[2019-03-01 06:04] LABS: CHLORIDE 114 mmol/L (98-107)
[2019-03-01 06:10] LABS: ALANINE AMINOTRANSFERASE 100 U/L (12-78); ALBUMIN 1.8 g/dL (3.4-5.0); ALKALINE PHOSPHATASE 453 U/L (45-117); ANION GAP 6 mmol/L (5-15); BILIRUBIN,TOTAL 0.4 mg/dL (0.2-1.0); CALCIUM 7.4 mg/dL (8.5-10.1); CREATININE 0.48 mg/dL (0.55-1.02); TOTAL PROTEIN 5.2 g/dL (6.4-8.2)
[2019-03-01] MEDS: HEPARIN 5,000 UNITS/ML, 1ML SQ SCH ×2 (07:30→19:30)
[2019-03-01 08:07] VITALS: BP 114/72
[2019-03-01] MEDS: POTASSIUM CHLORIDE 20 MEQ TAB.ER.PRT PO SCH ×3 (08:59→22:09)
[2019-03-01] MEDS ORDERED: PROMETHAZINE 25 MG/ML, 1ML IM PRN (11:00)
[2019-03-01 13:00] VITALS: BP 124/68
[2019-03-01 16:12] VITALS: BP 123/62
[2019-03-01 19:35] VITALS: BP 106/73
[2019-03-02] MEDS: OXYcodone IR 5MG TABLET PO PRN ×3 (00:14→08:53)
[2019-03-02 01:03] VITALS: BP 100/72
[2019-03-02] MEDS: NS + 20MEQ KCL 1,000 ML IV SCH (04:24)
[2019-03-02 06:33] LABS: ANION GAP 5 mmol/L (5-15); CALCIUM 7.4 mg/dL (8.5-10.1); CHLORIDE 115 mmol/L (98-107)
[2019-03-02 06:36] LABS: CREATININE 0.47 mg/dL (0.55-1.02)
[2019-03-02] MEDS: HEPARIN 5,000 UNITS/ML, 1ML SQ SCH (07:30)
[2019-03-02 07:38] VITALS: BP 108/75
[2019-03-02] MEDS ORDERED: PROM25AM6 PO (08:59)
[2019-03-02] MEDS ORDERED: PROM25SU34 RC (08:59)
== END 2019-03-02 11:20 | disposition home or self-care (01) | DRG 640 ==
LOC: ED 13:13 → EDIP 14:05 → 4WST 16:03 → DCLOUNGE 03-02 11:08
PROVIDERS: ADMIT Internal Medicine; ATTEND Internal Medicine
DX: E87.6 Hypokalemia (principal); E43 Unspecified severe protein-calorie malnutrition; C25.9 Malignant neoplasm of pancreas, unspecified; E87.0 Hyperosmolality and hypernatremia; G89.29 Other chronic pain; E83.42 Hypomagnesemia; K21.9 Gastro-esophageal reflux disease without esophagitis; K75.4 Autoimmune hepatitis; N20.0 Calculus of kidney; Z80.0 Family history of malignant neoplasm of digestive organs; Z80.1 Family history of malignant neoplasm of trachea, bronchus and lung; Z87.442 Personal history of urinary calculi; Z90.49 Acquired absence of other specified parts of digestive tract; Z68.21 Body mass index [BMI] 21.0-21.9, adult
CPT/HCPCS: 36415; 80048; 80053; 81001; 82040; 83735; 84100; 85025; 87086; 93005; 96365; 96366; 99285; G0378; J3480; Q0162; J3475; J7040

== ENCOUNTER 2019-04-25 11:41 | Outpatient (CLI) | payer OTHER ==
[~2019-04-25 11:41] MED LIST changes: +MORP30TA81 PO; +OXYC15TA PO; +PROM25AM6 PO; +PROM25SU34 RC
[2019-04-25] MEDS ORDERED: OMNIPAQUE 350 MG/ML, 100ML BOTTLE ONE (15:00)
== END 2019-04-25 23:59 | disposition home or self-care (01) ==
LOC: RAD 11:41
PROVIDERS: ATTEND Internal Medicine Hematology & Oncology
DX: C25.0 Malignant neoplasm of head of pancreas (principal); K76.0 Fatty (change of) liver, not elsewhere classified
CPT/HCPCS: 71260; 74177; J1642; Q9967